=== PATIENT | female | born 1965 | race Hispanic/Latino ===

== ENCOUNTER 2017-03-21 11:01 | Observation (INO) | payer MEDICAID ==
[2017-03-21 11:02] VITALS: BMI 24.9
--- NOTE | 2017-03-21 11:24 | C.PDOC ---
History Of Present Illness <Suraj Mccall - Last Filed: 03/21/17 17:30> <Hunter Benoit - Last Filed: 03/22/17 00:57> 51F judy after someone called ems for bizarre behavior. the pt says she was just trying to buy something at the store. she denies any SI or HI or any complaints. (Suraj Mccall) <Suraj Mccall - Last Filed: 03/21/17 17:30> <Hunter Benoit - Last Filed: 03/22/17 00:57> Time Seen by Provider: 03/21/17 11:12 Chief Complaint (Nursing): Psychiatric Evaluation Past Medical History - Medical History PMH: Anxiety, Bipolar Disorder, Depression, Schizophrenia Denies: Diabetes, Hepatitis, HIV, HTN, Chronic Kidney Disease, Seizures, Sexually Transmitted Disease Family History: States: Unknown Family Hx - Social History Hx Tobacco Use: Yes Hx Alcohol Use: No Hx Substance Use: No - Immunization History Hx Tetanus Toxoid Vaccination: No Hx Influenza Vaccination: No Hx Pneumococcal Vaccination: No <Suraj Mccall - Last Filed: 03/21/17 17:30> Vital Signs: Last Vital Signs Temp 98.3 F 03/21/17 22:30 Pulse 75 03/21/17 22:30 Resp 20 03/21/17 22:30 BP 111/75 03/21/17 22:30 Pulse Ox 95 03/21/17 22:30 - [facility] Procedures GROUP PSYCHOTHERAPY (01/21/17) INDIVIDUAL PSYCHOTHERAPY, SUPPORTIVE (01/21/17) Review Of Systems Except As Marked, All Systems Reviewed And Found Negative. Constitutional: Negative for: Fever Cardiovascular: Negative for: Chest Pain Respiratory: Negative for: Shortness of Breath Gastrointestinal: Negative for: Vomiting Neurological: Negative for: Weakness, Numbness, Headache Psych: Negative for: Suicidal ideation <Suraj Mccall - Last Filed: 03/21/17 17:30> Physical Exam - Physical Exam Appears: Agitated Skin: Warm, Dry Head: Atraumatic Nose: No Epistaxis Neck: Normal ROM Cardiovascular: Rhythm Regular Respiratory: No Decreased Breath Sounds, No Accessory Muscle Use Gastrointestinal/Abdominal: Soft, No Tenderness Extremity: No Swelling Pulses: Left Radial: Normal, Right Radial: Normal Neurological/Psych: Oriented x3, Normal Motor, Normal Sensation, Other (agitated , yelling and cursing at staff as they are attempting to triage) <Suraj Mccall P - Last Filed: 03/21/17 17:30> ED Course And Treatment - Laboratory Results Result Diagrams: 03/21/17 12:06 03/21/17 12:06 <Suraj Mccall P - Last Filed: 03/21/17 17:30> - Laboratory Results Result Diagrams: 03/21/17 12:06 03/21/17 12:06 Progress Note: pt was [place] [facility] [place] <Hunter Benoit - Last Filed: 03/22/17 00:57> Medical Decision Making <Suraj Mccall P - Last Filed: 03/21/17 17:30> <Odilia Benoitdi - Last Filed: 03/22/17 00:57> Medical Decision Making: cxr- nad the pt is medically cleared for psychiatric admission (Suraj Mccall) ED OBSERVATION <Suraj Mccall P - Last Filed: 03/21/17 17:30> Discharge: Yes Date of observation admission: 03/21/17 Time of observation admission: 19:00 <Odilia Benoitdi - Last Filed: 03/22/17 00:57> - Observation admission statement Patient is being placed in observation because:: psychosis (Sapira,Valdi) - Goals of Observation Goals of observation are:: [facility] [place], [place] screener (KayceeValdi) - Progress Note Progress Note: 03/21/17 19:11 vitals stable 03/21/17 21:43 vitals stable (Sapira,Valdi) Disposition <Suraj Mccall P - Last Filed: 03/21/17 17:30> Counseled Patient/Family Regarding: Studies Performed, Diagnosis - Disposition Disposition Time: 19:00 <Odilia Benoitdi - Last Filed: 03/22/17 00:57> - Disposition Disposition: OTHER INSTITUTION Condition: FAIR - Clinical Impression Clinical Impression: Schizoaffective disorder Decision To Admit <Suraj Mccall P - Last Filed: 03/21/17 17:30> <Odilia Benoitdi - Last Filed: 03/22/17 00:57> - . Patient Diagnosis: Schizoaffective disorder
[2017-03-21 12:12] LABS: BASO # 0.1 K/uL (0.0-0.2); EOS # 0.1 K/uL (0.0-0.7); HEMATOCRIT 35.5 % (34.0-47.0); LYMPH # 1.7 K/uL (1.0-4.3); LYMPH % 28.9 % (20.0-40.0); MEAN CELL VOLUME 95.6 fL (81.0-99.0); MEAN CORPUSCULAR HEMOGLOBIN 32.5 pg (27.0-31.0); MEAN PLATELET VOLUME 7.5 fL (7.2-11.7); MONO # 0.4 K/uL (0.0-0.8); MONO % 6.6 % (0.0-10.0); RED CELL DISTRIBUTION WIDTH 13.3 % (11.5-14.5)
[2017-03-21 12:30] LABS: CHLORIDE 101 mmol/L (98-107)
[2017-03-21 12:31] LABS: POTASSIUM 4.1 mmol/L (3.6-5.2); SODIUM 139 mmol/L (132-148)
[2017-03-21 12:33] LABS: ALB/GLOB RATIO 1.1 (1.0-2.1); AST/SGOT 33 U/L (14-36); BILIRUBIN,TOTAL 0.4 mg/dL (0.2-1.3); BLOOD UREA NITROGEN 19 mg/dL (7-17); CARBON DIOXIDE 24 mmol/L (22-30); GFR AFRICAN-AMERICAN > 60; TOTAL PROTEIN 7.8 g/dL (6.3-8.3)
[2017-03-21 12:34] LABS: ALCOHOL SERUM < 10 mg/dl (0-10); ALKALINE PHOSPHATASE 47 U/L (38-126); CALCIUM 9.2 mg/dl (8.6-10.4); GLUCOSE,RANDOM 84 mg/dL (65-105)
[2017-03-21 12:49] LABS: ALT/SGPT 31 U/L (9-52)
[2017-03-21 13:37] LABS: RBC URINE 4 /hpf (0-3); URINE BACTERIA RARE (<OCC); URINE BILIRUBIN NEGATIVE (NEGATIVE); URINE BLOOD 1+ (NEGATIVE); URINE COLOR Yellow (YELLOW); URINE GLUCOSE (UA) NORMAL (Normal); URINE KETONE NEGATIVE (NEGATIVE); URINE LEUKOCYTE ESTERASE 2+ Leu/uL (Negative); URINE PROTEIN NEGATIVE (NEGATIVE); WBC URINE 1 /hpf (0-5)
--- NOTE | 2017-03-21 17:29 | RAD ---
HISTORY: psych COMPARISON: 01/11/2015 FINDINGS: LUNGS: No active pulmonary disease. PLEURA: No significant pleural effusion identified, no pneumothorax apparent. CARDIOVASCULAR: No radiographic findings to suggest acute or significant cardiovascular disease. OSSEOUS STRUCTURES: No significant abnormalities. VISUALIZED UPPER ABDOMEN: Normal. OTHER FINDINGS: None. IMPRESSION: No active disease. Improved aeration of the right lung compared to prior study.
[2017-03-21 22:34] VITALS: RESP 20
[2017-03-22 02:40] VITALS: BP 116/79; PULSE 80; TEMP 97.9; O2SAT 98
--- NOTE | 2017-03-22 14:23 | CARD ---
APPROVED REPORT EKG Measurement Heart [id number] <Conclusion> Normal sinus rhythm Normal ECG
== END 2017-03-22 00:57 | disposition home or self-care (01) ==
LOC: C.ER 11:01 → C.9OBSV 19:10
PROVIDERS: ADMIT Emergency Medicine; ATTEND Emergency Medicine
DX: F25.9 Schizoaffective disorder, unspecified (principal); F31.9 Bipolar disorder, unspecified; Z87.891 Personal history of nicotine dependence
CPT/HCPCS: 71010; 80053; 80320; 80324; 80345; 80346; 80349; 80353; 80358; 80361; 81001; 83992; 84703; 85025; 93005; 96372; 99285; G0378; J2060